=== PATIENT | female | born 1945 | race Caucasian/White ===

== ENCOUNTER → 2016-11-16 | Outpatient (CLI) | payer MEDICARE | END | disposition home or self-care (01) | LOC: CFH 11:59 | PROVIDERS: ATTEND Family Medicine | DX: C73 Malignant neoplasm of thyroid gland (principal); E89.0 Postprocedural hypothyroidism | CPT/HCPCS: 76536 ==

== ENCOUNTER 2019-04-07 06:57 | Outpatient (CLI) | payer MEDICARE | END 2019-04-07 23:59 | disposition home or self-care (01) | LOC: CVU 06:57 → CFH 23:59 | PROVIDERS: ATTEND Family Medicine | DX: I08.3 Combined rheumatic disorders of mitral, aortic and tricuspid valves (principal); E78.5 Hyperlipidemia, unspecified; E89.0 Postprocedural hypothyroidism; Z90.710 Acquired absence of both cervix and uterus; Z98.890 Other specified postprocedural states; Z88.8 Allergy status to other drugs, medicaments and biological substances | CPT/HCPCS: 76536; 76700; 93306 ==

== ENCOUNTER 2020-05-14 07:49 | Outpatient (CLI) | payer MEDICARE | END 2020-05-14 23:59 | disposition home or self-care (01) | LOC: CVU 07:49 | PROVIDERS: ATTEND Internal Medicine Cardiovascular Disease | DX: R01.0 Benign and innocent cardiac murmurs (principal) | CPT/HCPCS: 93306 ==

== ENCOUNTER 2020-06-21 10:11 | Outpatient (CLI) | payer MEDICARE ==
[2020-06-21] MEDS ORDERED: METO25TA35 PO (10:44)
[2020-06-21] MEDS ORDERED: [UNRECOGNIZED DRUG - OTHER] PO (10:44)
[2020-06-21 11:46] LABS: BASOPHILS % (AUTO) 0 % (0-1); EOSINOPHILS % (AUTO) 1 % (1-7); LYMPHOCYTES % (AUTO) 23 % (22-44); MEAN CORPUSCULAR HEMOGLOBIN 30.3 pg (27.0-34.8); MEAN CORPUSCULAR HGB CONC 32.9 g/dL (32.4-35.8); MEAN PLATELET VOLUME 8.4 fL (7.4-10.4); MONOCYTES % (AUTO) 6 % (2-9); NEUTROPHILS % (AUTO) 70 % (42-75); PLATELET COUNT 225 x10^3/uL (130-400); RED BLOOD COUNT 4.39 x10^6/uL (3.82-5.3); RED CELL DISTRIBUTION WIDTH 13.9 % (9.6-15.2)
[2020-06-21 11:50] LABS: MD NO
[2020-06-21 11:51] LABS: CALCIUM 8.7 mg/dL (8.5-10.1); CREATININE 0.95 mg/dL (0.55-1.02)
[2020-06-21 12:04] LABS: ANION GAP 2 mmol/L (5-15); CHLORIDE 111 mmol/L (98-107)
== END 2020-06-21 23:59 | disposition home or self-care (01) ==
LOC: STAR 10:11
PROVIDERS: ATTEND Internal Medicine Cardiovascular Disease
DX: Z01.812 Encounter for preprocedural laboratory examination (principal); Z20.828 Contact with and (suspected) exposure to other viral communicable diseases
CPT/HCPCS: 80048; 85025; 87635

== ENCOUNTER → 2020-06-21 | Outpatient (CLI) | payer MEDICARE ==
[~2020-06-21] MED LIST: METO25TA35 PO; OMNIPAQUE 350 MG/ML, 150 ML BOTTLE ONE; [UNRECOGNIZED DRUG - OTHER] PO
== END | disposition home or self-care (01) ==
LOC: CFH 12:54
PROVIDERS: ATTEND Internal Medicine Cardiovascular Disease
DX: Z01.818 Encounter for other preprocedural examination (principal); I48.91 Unspecified atrial fibrillation; R91.1 Solitary pulmonary nodule
CPT/HCPCS: 71046; 75572; Q9967

== ENCOUNTER 2020-06-25 05:58 | Observation (INO) | payer MEDICARE ==
[~2020-06-25] VITALS: Ht 160 cm; Wt 77.8 kg
[~2020-06-25 05:58] MED LIST changes: -OMNIPAQUE 350 MG/ML, 150 ML BOTTLE ONE
[2020-06-25] MEDS ORDERED: SODIUM CHLORIDE 0.9% 1,000 ML IV SCH ×2 (06:30)
[2020-06-25] MEDS ORDERED: FENTANYL PF 250 MCG/5ML ONE (08:02)
[2020-06-25] MEDS ORDERED: MIDAZOLAM 1 MG/ML, 2ML ONE (08:02)
[2020-06-25] MEDS ORDERED: PHENYLEPHRINE 10 MG/ML ONE (08:03)
[2020-06-25] MEDS ORDERED: ONDANSETRON 2MG/ML, 2ML ONE (08:03)
[2020-06-25] MEDS ORDERED: EPHEDRINE 50 MG/ML, 1ML ONE (08:03)
[2020-06-25] MEDS ORDERED: CEFAZOLIN 1,000 MG ONE (08:03)
[2020-06-25] MEDS ORDERED: DEXAMETHASONE 4 MG/ML, 5ML ONE (08:07)
[2020-06-25] MEDS ORDERED: LIDOCAINE 1%, 20ML ONE (08:18)
[2020-06-25] MEDS ORDERED: ROCURONIUM 10MG/ML,5ML ONE (10:25)
[2020-06-25] MEDS ORDERED: PROPOFOL 10 MG/ML, 20ML ONE (10:26)
[2020-06-25] MEDS ORDERED: HEPARIN 1,000 UNITS/ML, 10ML ONE ×3 (10:48)
[2020-06-25] MEDS ORDERED: MIDAZOLAM 1 MG/ML, 2ML IV PRN (13:00)
[2020-06-25] MEDS ORDERED: MEPERIDINE/PF 25MG/0.5ML IVPush PRN (13:00)
[2020-06-25] MEDS ORDERED: ONDANSETRON 2MG/ML, 2ML IVPush PRN (13:00)
[2020-06-25] MEDS: THYROID 97.5 MG PO SCH (13:00)
[2020-06-25] MEDS ORDERED: OXYcodone 5 MG/5 ML ORAL.SOL UDC PO PRN (13:00)
[2020-06-25] MEDS ORDERED: PROMETHAZINE 25 MG/ML, 1ML IVPush PRN (13:00)
[2020-06-25] MEDS ORDERED: ALBUTEROL SULFATE 2.5 MG/3 ML NPPB PRN (13:00)
[2020-06-25] MEDS ORDERED: ACETAMINOPHEN 325 MG TABLET PO PRN (13:00)
[2020-06-25] MEDS ORDERED: DIAZEPAM 5 MG/ML, 2ML IVPush PRN (13:00)
[2020-06-25] MEDS ORDERED: HYDROmorphone 1 MG/ML, 1ML INJ IVPush PRN (13:00)
[2020-06-25] MEDS ORDERED: LABETALOL 5MG/ML, 20ML IV PRN (13:00)
[2020-06-25] MEDS ORDERED: EPHEDRINE 50 MG/ML, 1ML IVPush PRN (13:00)
[2020-06-25] MEDS ORDERED: FENTANYL PF 100 MCG/2ML ONE (13:31)
[2020-06-25] MEDS ORDERED: OXYcodone 5 MG/5 ML ORAL.SOL UDC ONE (13:31)
[2020-06-25] MEDS: FENTANYL PF 100 MCG/2ML IV PRN ×2 (13:35→13:45)
[2020-06-25] MEDS ORDERED: APIXABAN 5 MG TABLET ONE (14:35)
[2020-06-25] MEDS ORDERED: APIXABAN 5 MG TABLET PO ONE (15:00)
[2020-06-25] MEDS ORDERED: SOTALOL 80MG TABLET PO SCH (18:00)
[2020-06-25] MEDS: SOTALOL 80MG TABLET PO SCH (18:42)
[2020-06-25 18:52] VITALS: BP 122/74
[2020-06-25] MEDS: COLCHICINE 0.6 MG CAPSULE PO SCH (20:27)
[2020-06-25] MEDS ORDERED: SODIUM CHLORIDE 0.9% 1,000 ML IVBOLUS PRN (20:30)
[2020-06-25] MEDS: APIXABAN 5 MG TABLET PO SCH (20:39)
[2020-06-26 00:34] VITALS: BP 112/69
[2020-06-26] MEDS: SOTALOL 80MG TABLET PO SCH (05:24)
[2020-06-26] MEDS: COLCHICINE 0.6 MG CAPSULE PO SCH (09:00)
[2020-06-26] MEDS: THYROID 97.5 MG PO SCH (09:00)
[2020-06-26 09:12] VITALS: BP 149/82
[2020-06-26] MEDS: APIXABAN 5 MG TABLET PO SCH (09:13)
[2020-06-26] MEDS ORDERED: APIX5TAB PO (11:11)
[2020-06-26 12:00] VITALS: BP 162/88
[2020-06-26] MEDS ORDERED: METO25TA35 PO ×3 (12:51→13:04)
== END 2020-06-26 15:35 | disposition home or self-care (01) ==
LOC: CACL 05:58 → 5SO 12:51 → CACL 21:50 → DCLOUNGE 06-26 15:15
PROVIDERS: ADMIT Internal Medicine Cardiovascular Disease; ATTEND Internal Medicine Cardiovascular Disease
DX: I48.91 Unspecified atrial fibrillation (principal); I48.92 Unspecified atrial flutter; I10 Essential (primary) hypertension; E78.5 Hyperlipidemia, unspecified; Z79.899 Other long term (current) drug therapy; Z88.0 Allergy status to penicillin
CPT/HCPCS: 76937; 85347; 93005; 93308; 93312; 93321; 93325; 93613; 93655; 93656; 93657; 93662; C1730; C1732; C1759; C1766; C1893; C1894; G0378; J0690; J1100; J1644; J2250; J2370; J2405; J2704; J3010; J3490; J7030